=== PATIENT | male | born 1945 | race Caucasian/White ===

== ENCOUNTER 2016-10-20 18:11 | Observation (INO) | payer MEDICARE, OTHER ==
[~2016-10-20] VITALS: Ht 175.3 cm; Wt 132.3 kg
[2016-10-20] MEDS ORDERED: ASPIRIN 81 MG CHEW TAB ONE (19:13)
[2016-10-20] MEDS ORDERED: SODIUM CHLORIDE 0.9% FLUSH BAG 500 ML IV PRN (22:20)
[2016-10-20] MEDS ORDERED: MORPHINE 2 MG/ML SYR IV PRN (22:20)
[2016-10-20] MEDS ORDERED: DOCUSATE SOD 100 MG CAP PO PRN (22:20)
[2016-10-20] MEDS ORDERED: NITROGLYCERIN SL 0.4 MG TAB SL PRN (22:20)
[2016-10-20] MEDS ORDERED: ONDANSETRON 4 MG VIAL IV PRN (22:20)
[2016-10-20] MEDS ORDERED: TEMAZEPAM 7.5 MG CAP PO PRN (22:20)
[2016-10-20] MEDS ORDERED: SODIUM CHLORIDE 0.9% 1,000 ML IV SCH (22:20)
[2016-10-20] MEDS ORDERED: TRAMADOL 50 MG TAB PO PRN (22:20)
[2016-10-20] MEDS ORDERED: LORAZEPAM 0.5 MG TAB PO PRN (22:20)
[2016-10-20] MEDS ORDERED: SALINE FLUSH 10 ML FLUSH PRN (22:20)
[2016-10-20] MEDS ORDERED: ACETAMINOPHEN 325 MG TAB PO PRN (22:20)
[2016-10-20] MEDS ORDERED: NITROGLYCERIN 50 MG/250 ML IV PRN (22:20)
[2016-10-21 00:29] VITALS: BP_SYST 124; RESP 18; TEMP 97.6
[2016-10-21 00:30] VITALS: Ht 175.3 cm; Wt 132.3 kg
[2016-10-21 03:30] VITALS: BP_SYST 118; RESP 19; TEMP 98.4
[2016-10-21 07:44] VITALS: BP_SYST 126; RESP 19; TEMP 97.6
[2016-10-21] MEDS ORDERED: ASPIRIN EC 81 MG TAB PO SCH (08:00)
[2016-10-21] MEDS ORDERED: SALINE FLUSH 10 ML FLUSH SCH (08:00)
[2016-10-21 12:16] VITALS: BP_SYST 118; RESP 20; TEMP 97.8
[2016-10-21 13:42] VITALS: BP_SYST 118; RESP 20; TEMP 97.8
== END 2016-10-21 13:22 | disposition home or self-care (01) ==
LOC: ENRESERVDT → ENRESERVTM → ER 18:11 → ENPENDDIS 21:46 → EMR 21:46 → PCU2 10-21 00:19
PROVIDERS: ADMIT Specialist; ATTEND Specialist
CPT/HCPCS: 36415 ×2; 71010 ×2; 80053 ×2; 80061 ×2; 82550 ×2; 82553 ×2; 83735 ×2; 83880 ×2; 84484 ×2; 85025 ×2; 85610 ×2; 85730 ×2; 93005 ×2; 99285; G0378